=== PATIENT | male | born 1980 | race Caucasian/White ===

== ENCOUNTER 2021-10-28 09:19 | Emergency (ER) | payer OTHER, SELFPAY ==
[2021-10-28 09:29] VITALS: BP 139/87; PULSE 82; RESP 16; TEMP 37; O2SAT 100
--- NOTE | 2021-10-28 09:49 | ED.URI ---
HPI - URI/Sore Throat General Chief Complaint: Upper Respiratory Infection Stated Complaint: Sinus,Congestion Time Seen by Provider: 10/28/21 09:49 Source: patient Mode of arrival: ambulatory Limitations: no limitations History of Present Illness HPI Narrative: 41-year-old male presents with complaint of sore throat, nasal congestion, fatigue, body aches, cough and chest congestion for 4 days. Reports that symptoms started after Easter about with family. Reports that 2 of his nieces had strep. Patient reports that last night his temp was 101 Fahrenheit. Reports that he has had his COVID-vaccine and is booster. Denies shortness of breath and chest pain. All systems reviewed and negative except as noted above. Related Data Home Medications Medication Instructions Recorded Confirmed No Home Medications 10/28/21 10/28/21 Allergies Allergy/AdvReac Type Severity Reaction Status Date / Time No Known Allergies Allergy Unverified 10/28/21 09:48 Review of Systems Review of Systems: CONSTITUTIONAL: Reports fever, chills, or sweats. EYES: Denies visual changes, redness, or discharge. ENT: Reports rhinorrhea, congestion, sore throat. Denies otalgia. CARDIOVASCULAR: Denies chest pain, palpitations, or edema. RESPIRATORY: Reports cough. Denies dyspnea. GASTROINTESTINAL: Denies abdominal pain, nausea, vomiting, or diarrhea. GENITOURINARY: Denies dysuria or hematuria. SKIN: Denies rash or itching. MUSCULOSKELETAL: Denies back pain, joint pain, or myalgia. NEUROLOGIC: Denies headache, numbness, or weakness. PSYCHIATRIC: Denies anxiety or depression. All other systems reviewed are negative, except as documented in HPI. PMFSH Comments At time of signature, agree with nursing past medical, surgical, social and family history. There is no relevant family history pertinent to the presenting complaint. Exam Narrative: GENERAL: This is a well-nourished, well-developed patient, in no apparent distress. HEAD: normocephalic, atraumatic. EYES: PERRL. Sclera clear/white. Vision is grossly intact. EARS: External ears normal, auditory canals clear and without drainage, TMs normal without perforation. Hearing grossly intact. NOSE: External nose normal with clear nasal drainage with erythema to nares. THROAT: Mucous membranes moist, erythema to posterior pharynx. NECK: Neck supple, non-tender without lymphadenopathy, masses or thyromegaly. CARDIOVASCULAR: Regular rate and rhythm without murmurs, gallops, or rubs. RESPIRATORY: Clear to auscultation. Breath sounds equal bilaterally. No wheezes, rales, or rhonchi. SKIN: warm, Dry, intact with no suspicious lesions or rash, good texture and turgor. NEURO: awake, alert, and oriented to person, place and time. There were no obvious focal neurologic abnormalities. EXTREMITIES: Normal range of motion to all extremities. Course Course Level of Care: Express Care Visit Vital Signs Vital signs: Vital Signs Temperature 37.0 C 10/28/21 09:29 Pulse Rate 82 10/28/21 09:29 Respiratory Rate 16 10/28/21 09:29 Blood Pressure 139/87 10/28/21 09:29 Pulse Oximetry 100 10/28/21 09:29 Temperature 37.0 C 10/28/21 09:29 Pulse Rate 82 10/28/21 09:29 Respiratory Rate 16 10/28/21 09:29 Blood Pressure 139/87 10/28/21 09:29 Pulse Oximetry 100 10/28/21 09:29 Reviewed MDM - URI/Sore Throat MDM Narrative Medical decision making narrative: Patient is aware of diagnosis, understands and agrees to treatment plan. Anticipatory guidance given. Patient agrees to follow-up as directed and is aware of reasons to seek care at the emergency department. Portions of this record may have been created with voice recognition software Differential Diagnosis Differential diagnosis: Likely upper respiratory infection, sinusitis, viral infection, influenza and other (COVID) Lab Data Labs: Influenza A Screen Negative Reference Ran
== END 2021-10-28 10:06 | disposition home or self-care (01) ==
PROVIDERS: Emergency Provider Nurse Practitioner Family
DX: U07.1 COVID-19 (principal); Z98.84 Bariatric surgery status
CPT/HCPCS: 87081; 87426; 87804; 87880; 99213; C9803; G0463